=== PATIENT | male | born 1940 | race Caucasian/White ===

== ENCOUNTER → 2016-06-10 | Outpatient (CLI) | payer OTHER, MEDICARE | LOC: FIMAGING 12:53 | PROVIDERS: ATTEND Family Medicine | DX: R05 Cough (principal); R91.8 Other nonspecific abnormal finding of lung field; I25.10 Atherosclerotic heart disease of native coronary artery without angina pectoris; I10 Essential (primary) hypertension; R10.9 Unspecified abdominal pain ==

== ENCOUNTER → 2016-07-06 | Outpatient (CLI) | payer OTHER, MEDICARE | LOC: BHCLAF 10:00 | PROVIDERS: ATTEND Internal Medicine Cardiovascular Disease | DX: I25.10 Atherosclerotic heart disease of native coronary artery without angina pectoris (principal); I10 Essential (primary) hypertension; E78.5 Hyperlipidemia, unspecified | CPT/HCPCS: 93005-PO ==